=== PATIENT | female | born 1990 | race Two or more races ===

== ENCOUNTER 2023-12-31 15:12 | Emergency (ER) | payer BC ==
[2023-12-31] MEDS: Dexamethasone 10 MG/ML SDV IM ONE (16:31)
== END 2023-12-31 16:35 | disposition home or self-care (01) ==
LOC: MW.ED 15:12
DX: O99.891 Other specified diseases and conditions complicating pregnancy (principal); M06.9 Rheumatoid arthritis, unspecified; Z75.8 Other problems related to medical facilities and other health care; Z3A.18 18 weeks gestation of pregnancy
CPT/HCPCS: 96372; 99283; J1100

== ENCOUNTER 2024-05-19 00:49 | Inpatient (IN) | payer BC ==
[2024-05-19] MEDS ORDERED: Water For Irrigation,Sterile 1,000 ML Container IRR PRN (00:58)
[2024-05-19] MEDS ORDERED: Terbutaline 1 MG/ML SDV SUBCUT PRN (00:58)
[2024-05-19] MEDS ORDERED: Misoprostol 200 MCG Tab PO PRN (00:58)
[2024-05-19] MEDS ORDERED: Methylergonovine 0.2 MG/1 ML Amp IM PRN (00:58)
[2024-05-19] MEDS ORDERED: Carboprost Tromethamine 250 MCG/1 mL Vial IM PRN (00:58)
[2024-05-19] MEDS ORDERED: Lidocaine 1% 50 ML MDV INJECT PRN (00:58)
[2024-05-19] MEDS ORDERED: Nalbuphine 10 MG/1 ML Vial IVPUSH PRN (00:58)
[2024-05-19] MEDS ORDERED: Sodium Chloride 0.9% 20 ML SDV IV PRN (00:58)
[2024-05-19] MEDS ORDERED: Tranexamic Acid IN NACL,ISO-OS 1,000 MG in Premix Bag 1 BAG IV PRN (00:58)
[2024-05-19] MEDS ORDERED: Misoprostol 25 MCG (1/4 of 100 MCG) Tab VAG PRN (00:58)
[2024-05-19] MEDS ORDERED: Sodium Chloride 0.9% 2.5 ML Syringe FLUSH PRN (00:58)
[2024-05-19] MEDS ORDERED: Butorphanol 2 MG/ML SDV IVPUSH PRN (00:58)
[2024-05-19] MEDS ORDERED: Oxytocin/0.9 % Sodium Chloride 30 UNIT/500 ML BAG IV SCH (01:00)
[2024-05-19 01:40] LABS: HEMATOCRIT 33.2 % (37.0-47.0); HEMOGLOBIN 11.3 g/dL (12.0-16.0); MEAN CORPUSCULAR HEMOGLOBIN 29.3 pg (28.0-32.0); MEAN PLATELET VOLUME 9.2 fL (9.4-12.3); PLATELET COUNT,PLT 334 K/uL (150-400); RED BLOOD CELL COUNT 3.86 M/uL (4.10-5.30); WHITE BLOOD CELL COUNT,WBC 11.66 K/uL (3.9-11.3)
[2024-05-19] MEDS: Misoprostol 25 MCG (1/4 of 100 MCG) Tab PO ONE (02:28)
[2024-05-19] MEDS: Misoprostol 25 MCG (1/4 of 100 MCG) Tab VAG PRN (02:29)
[2024-05-19] MEDS ORDERED: Misoprostol 25 MCG (1/4 of 100 MCG) Tab PO SCH (04:00)
[2024-05-19] MEDS ORDERED: Phenylephrine HCl In 0.9% NaCl 1 MG/10 ML Syringe IVPUSH PRN (04:59)
[2024-05-19] MEDS ORDERED: ePHEDrine 50 MG/ML SDV IVPUSH PRN (04:59)
[2024-05-19] MEDS ORDERED: dexmedeTOMIDine HCl 200 MCG/2 ML SDV EPIDUR SCH (05:00)
[2024-05-19] MEDS: Lactated Ringers 1,000 ML IV SCH (08:52)
[2024-05-19] MEDS: Oxytocin/0.9 % Sodium Chloride 30 UNIT/500 ML BAG IV SCH (10:10)
[2024-05-19] MEDS: Ropivacaine HCl/PF 400 MG in Premix Bag 1 BAG EPIDUR SCH (15:37)
[2024-05-20] MEDS: Ondansetron 4 MG/2 ML SDV IVPUSH PRN (17:55)
[2024-05-20] MEDS: Sodium Chloride 0.9% 10 ML Syringe FLUSH PRN (17:55)
[2024-05-20] MEDS ORDERED: fentaNYL 100 MCG/2 ML SDV ONE ×3 (18:15→20:01)
[2024-05-20] MEDS ORDERED: Bupivacaine 0.25% 10 ML SDV ONE (18:16)
[2024-05-20] MEDS ORDERED: Bupivacaine 0.5% 10 ML SDV ONE ×2 (18:45→19:47)
[2024-05-20] MEDS ORDERED: Ondansetron 4 MG/2 ML SDV ONE (18:54)
[2024-05-20] MEDS ORDERED: Oxytocin 10 Units/1 ML SDV ONE ×2 (18:54→20:29)
[2024-05-20] MEDS ORDERED: Azithromycin 500 MG Vial ONE (18:54)
[2024-05-20] MEDS ORDERED: Tranexamic Acid 1,000 MG/10 ML Vial ONE (18:54)
[2024-05-20] MEDS ORDERED: Ropivacaine 0.5% 5 MG/ML 30 ML SDV ONE (18:54)
[2024-05-20] MEDS ORDERED: ceFAZolin 2 GM Vial ONE (18:55)
[2024-05-20] MEDS ORDERED: Morphine PF 10 MG/10 ML SDV ONE (18:58)
[2024-05-20] MEDS ORDERED: Midazolam 1 MG/ML 2 ML SDV ONE (19:09)
[2024-05-20] MEDS ORDERED: Misoprostol 200 MCG Tab RECTAL PRN (19:21)
[2024-05-20] MEDS ORDERED: Bisacodyl 10 MG Supp RECTAL PRN (19:21)
[2024-05-20] MEDS ORDERED: Methylergonovine 0.2 MG/1 ML Amp IM PRN (19:21)
[2024-05-20] MEDS ORDERED: Oxytocin 10 Units/1 ML SDV IM PRN (19:21)
[2024-05-20] MEDS ORDERED: Ondansetron 4 MG/2 ML SDV IVPUSH PRN ×3 (19:21→19:34)
[2024-05-20] MEDS ORDERED: Lanolin 100% Cream 7 GM Tube TOP PRN (19:21)
[2024-05-20] MEDS ORDERED: diphenhydrAMINE 50 MG/ML SDV IVPUSH PRN ×2 (19:21→19:34)
[2024-05-20] MEDS ORDERED: Acetaminophen/oxyCODONE 325-5 MG Tab PO PRN (19:21)
[2024-05-20] MEDS ORDERED: Lactated Ringers 1,000 ML IV SCH (19:30)
[2024-05-20] MEDS ORDERED: HYDROmorphone 1 MG/ML Syringe IVPUSH PRN (19:34)
[2024-05-20] MEDS ORDERED: Naloxone 0.4 MG/ML SDV IVPUSH PRN (19:34)
[2024-05-20] MEDS ORDERED: Phenylephrine HCl In 0.9% NaCl 1 MG/10 ML Syringe IVPUSH PRN (19:34)
[2024-05-20] MEDS ORDERED: fentaNYL 100 MCG/2 ML SDV IVPUSH PRN (19:34)
[2024-05-20] MEDS ORDERED: droPERidol 5 MG/2 ML SDV IVPUSH PRN (19:34)
[2024-05-20] MEDS ORDERED: Metoclopramide 10 MG/2 ML SDV IVPUSH PRN (19:34)
[2024-05-20] MEDS ORDERED: Morphine 2 MG/ML SYRINGE IVPUSH PRN (19:34)
[2024-05-20] MEDS ORDERED: fentaNYL 50 MCG/ML SDV IVPUSH PRN (19:34)
[2024-05-20] MEDS ORDERED: Nalbuphine 10 MG/1 ML Vial IVPUSH PRN (19:34)
[2024-05-20] MEDS ORDERED: Albuterol 0.083% 2.5 MG/3 ML Neb Soln NEB PRN (19:34)
[2024-05-20] MEDS ORDERED: Ketamine HCL/NACL, ISO-OSM 50 MG/5 ML Syringe ONE (20:02)
[2024-05-20] MEDS ORDERED: Propofol 200 MG/20 ML SDV ONE (20:07)
[2024-05-20] MEDS ORDERED: Acetaminophen 1,000 MG in Premix Bag 1 BAG IV SCH (23:00)
[2024-05-20] MEDS: Ketorolac 30 MG/ML SDV IVPUSH SCH (23:48)
[2024-05-21] MEDS: Acetaminophen 1,000 MG in Premix Bag 1 BAG IV SCH (02:59)
[2024-05-21 06:47] LABS: HEMATOCRIT 29.5 % (37.0-47.0)
[2024-05-21] MEDS: Docusate Sodium 100 MG Cap PO SCH (09:38)
[2024-05-22] MEDS: Acetaminophen/oxyCODONE 325-5 MG Tab PO PRN ×2 (05:03→14:14)
[2024-05-22] MEDS: Ibuprofen 800 MG Tab PO PRN (08:23)
== END 2024-05-22 17:12 | disposition still patient (30) | DRG 540 ==
LOC: MW.OBCHECK 00:49 → MW.OB 00:50 → MW.OBCHECK 00:51 → OBSVTOIN 05-20 19:42 → MW.OB 05-21 00:05
PROVIDERS: ADMIT Obstetrics & Gynecology Obstetrics; ATTEND Obstetrics & Gynecology Obstetrics
PROC: 10D00Z1 Extraction of Products of Conception, Low, Open Approach (ICD-10-PCS; principal; 2024-05-21)
PROC: 3E0P7VZ Introduction of Hormone into Female Reproductive, Via Natural or Artificial Opening (ICD-10-PCS; 2024-05-21)
PROC: 3E0R3BZ Introduction of Anesthetic Agent into Spinal Canal, Percutaneous Approach (ICD-10-PCS; 2024-05-21)
PROC: 00HU33Z Insertion of Infusion Device into Spinal Canal, Percutaneous Approach (ICD-10-PCS; 2024-05-21)
PROC: 3E033VJ Introduction of Other Hormone into Peripheral Vein, Percutaneous Approach (ICD-10-PCS; 2024-05-21)
DX: O99.892 Other specified diseases and conditions complicating childbirth (principal); Z37.0 Single live birth; M06.9 Rheumatoid arthritis, unspecified; O62.1 Secondary uterine inertia; Z3A.39 39 weeks gestation of pregnancy
CPT/HCPCS: 36415; 51702; 59025; 85014; 85018; 85027; 86592; 86850; 86900; 86901; A9270-GY; J0131; J0456; J0665; J0690; J1885; J2250; J2274; J2405; J2590; J2704; J2795; J3010; J3490; J7120